=== PATIENT | male | born 1995 | race Caucasian/White ===

== ENCOUNTER 2024-05-21 22:55 | Emergency (ER) | payer BC ==
[~2024-05-21] VITALS: Ht 193 cm; Wt 96.7 kg
[2024-05-21 23:14] VITALS: BP 160/94; PULSE 107; RESP 18; TEMP 98.1; O2SAT 98
[2024-05-21] MEDS ORDERED: ATIVAN ONE ×2 (23:23→23:27)
[2024-05-21 23:28] LABS: BASOPHIL % 0.2 % (0.2-1.2); EOSINOPHIL # 0.3 10^3/uL (0.0-0.2); EOSINOPHIL % 2.6 % (0.0-5.0); HEMATOCRIT(ML) 44.1 % (37.0-53.0); HEMOGLOBIN 15.7 g/dL (13.9-16.3); LYMPHOCYTES # 3.22 10^3/uL1 (1.0-4.8); LYMPHOCYTES % 33.3 % (24.0-44.0); MEAN CORP HGB 30.7 pg (26-34); MEAN CORP HGB CONCENTRATION 35.6 g/dL (33-36.5); MEAN CORP VOLUME 86.3 fL (78-100); MONOCYTES # 0.6 10^3/uL (0.3-0.8); MONOCYTES % 6.2 % (5.0-12.0); NEUTROPHIL # 5.6 10^3/uL (1.8-7.7); NEUTROPHILS % 57.6 % (41.0-85.0); PLATELET COUNT 282 10^3/uL (150-400); RED BLOOD CELL 5.11 10^6/uL (4.50-5.90); RED CELL DISTRIBUTION WIDTH 12.3 % (11.5-14.5); WHITE BLOOD CELL 9.7 10^3/uL (4.5-11.0)
[2024-05-21] MEDS: ATIVAN IV STA (23:30)
[2024-05-21 23:37] LABS: +ADD MANUAL DIFF(NO CHRG) NO
[2024-05-21 23:45] LABS: ALBUMIN(ML) 4.8 g/dL (3.4-5.0); ALBUMIN/GLOBULIN RATIO 1.411; ANION GAP 15.2; BUN/CREATININE RATIO 14.5 (10.0-20.0); CARBON DIOXIDE 28.3 mmol/L (20.0-32); CREATININE SERUM 1.31 mg/dL (0.59-1.40); EST GFR, NON-AA 64.2 (>/=60); POTASSIUM 3.5 mmol/L (3.6-5.2)
[2024-05-21 23:58] VITALS: BP 157/91; PULSE 90; RESP 18; TEMP 98.1; O2SAT 98
== END 2024-05-22 | disposition home or self-care (01) ==
LOC: ER 22:55
DX: F41.0 Panic disorder [episodic paroxysmal anxiety] (principal)
CPT/HCPCS: 99284; 96374; 71045; 80053; 85025; 36415; 85379; 84484; 93005; J2060 ×2